=== PATIENT | male | born 1945 | race Caucasian/White ===

== ENCOUNTER 2016-07-11 07:04 | Inpatient (IN) | payer BC ==
--- NOTE | ~2016-07-11 | DS ---
Discharge Summary [facility] [address] [place]. [address] NAME: EL CONNOR : 44 STATUS : DIS IN PAT#: [id number] AGE: 71 ADM/REG DATE : 07/11/16 MR#: [id number] REPORT SERV DATE: 07/22/16 DICTATED BY: MCI VASQUEZ DATE: 07/21/16 REPORT STATUS : Draft TRANSCRIBED BY: MODL DATE: 07/21/16 ADMISSION DATE: 07/11/2016 DISCHARGE DATE: 07/21/2016 DISCHARGE DIAGNOSES: 1. Acute on chronic biventricular systolic congestive heart failure exacerbation with baseline ejection fraction of 22%. 2. Ischemic cardiomyopathy. 3. Acute rhythm changing hyperkalemia requiring emergent hemodialysis on 07/17/2016. 4. Acute kidney injury on chronic kidney disease. 5. Biventricular AICD. 6. Right-sided pleural effusion. CONSULTS: 1. Cardiology. 2. Nephrology. 3. Critical Care. PROCEDURES AND IMPORTANT IMAGIN. Echocardiogram performed on 07/12/2015 showed severely decreased left ventricular systolic function with calculated ejection fraction of 22%. The patient also had a dilated left-sided chambers along with regional wall motion abnormalities. The patient also had a dilated right ventricle with moderately decreased systolic function. The patient also had moderate tricuspid regurg with mild pulmonary hypertension and dilated aorta. 2. Emergent hemodialysis performed on 07/17/2016 after emergent placement of Vas-Cath for the rhythm changing hyperkalemia. HOSPITAL COURSE: This is a 71-year-old gentleman who was initially admitted with acute on chronic biventricular systolic congestive heart failure exacerbation. For details, please refer to excellent H and P dictated by Dr. Prasad Smith. In summary, the patient was admitted and was treated with IV Bumex drip. The patient was diuresing well and was nearing discharge. I assumed care of this patient on 07/16/2016 and by then, the patient was transitioned from IV Bumex drip to p.o. Bumex. The patient was still getting 40 mEq of potassium b.i.d. The patient's creatinine had ranged from 1.2 to 1.7 throughout the hospital stay. As the patient's creatinine was climbing up likely due to over diuresis, the patient's p.o. Bumex was held on the morning of 07/17/2016. It was also noted that the patient's potassium has been around 3.8 to mid 4's, and then on 07/17/2016 morning, the patient's potassium was found to be at 6. Again the patient's Bumex was held on the morning of 07/17/2016, and the patient was given gentle IV fluid hydration to offset the over- diuresis and the hyperkalemia. The patient then had a rapid response on 07/17/2016 around noon when the patient became very lethargic and not very responsive. The patient was then found to have a potassium level of 7.6. The patient was taken down for emergent hemodialysis. Subsequently, the patient did not have further issues of hyperkalemia, as a matter of fact, the patient actually required gentle potassium replacements throughout the rest of hospital stay. It is still not entirely clear why the patient decompensated so Discharge Summary [place] [id number] [facility] [place]. [address] NAME: EL CONNOR : 44 STATUS : DIS IN PAT#: [id number] AGE: 71 ADM/REG DATE : 07/11/16 MR#: [id number] REPORT SERV DATE: 07/22/16 DICTATED BY: MIC VASQUEZ DATE: 07/21/16 REPORT STATUS : Draft TRANSCRIBED BY: VAISHNAVI DATE: 07/21/16 quickly in terms of hyperkalemia. Besides the above acute event, the patient at baseline has poor prognosis with extremely advanced ischemic cardiomyopathy. The patient was recommended to get an LVAD in the past which he refused. Also Cardiology recommended hospice, but the patient refused hospice also. After several days of stable hemodynamics with stable ins and outs and electrolytes and renal function, the patient is now being discharged home to be followed closely as an outpatient. Of note, the patient had a CT of the chest done due to persistent cough, which did not show any pneumonic process but it did show a right-sided moderate size pleural effusion. The patient actually refused thoracentesis, and the patient adamantly wanted to be discharged home at this point in time. The patient clearly understands the risks versus benefits of not getting the thoracentesis. The patient is now being discharged home to continue slow diuresis with p.o. Demadex, and he will have a very close followup with his primary care physician. The patient at baseline uses 3 L of home oxygen, and the patient is being discharged on 2 L of home oxygen. DISPOSITION: Home. DISCHARGE MEDICATIONS: 1. Coreg 3.125 mg p.o. b.i.d. as a new medication. The patient's metoprolol was discontinued. 2. Demadex 40 mg p.o. daily as a new medication. The patient's Bumex prior to admission is discontinued. 3. Klor-Con 20 mEq p.o. daily, which is decreased from 20 mEq p.o. three times daily. The patient is also given a prescription for Medrol Dosepak and Z-Yogi for possible bronchitis. Otherwise, there are no medication changes. FOLLOWUP: Please follow up with PCP in the next one week. The patient is to have lab work prior to following up with his primary care physician. A total of 45 minutes spent in coordinating this patient's discharge today. TERRELL/VAISHNAVI Mic Vasquez MD / [id number] CC: MD Prasad Cagle M.D.
--- NOTE | ~2016-07-11 | CN ---
Consultation Report [facility] [address] [place]. [address] NAME: EL CONNOR : 44 STATUS : ADM IN PAT#: [id number] AGE: 71 ADM/REG DATE : 07/11/16 MR#: [id number] REPORT SERV DATE: 07/17/16 DICTATED BY: HANNAH MOELLER DATE: 07/17/16 REPORT STATUS : Draft TRANSCRIBED BY: MODL DATE: 07/17/16 CONSULTATION DATE OF CONSULTATION: 07/17/2016 REQUESTING PHYSICIAN: Dr. Espinosa. REASON FOR CONSULTATION: Acute hyperkalemia with shock in a patient with acute on chronic kidney disease. ASSESSMENT: Acute on chronic kidney disease, patient with ischemic cardiomyopathy, ejection fraction 25%, now found to be in shock with severe hyperkalemia, potassium 7.6 in the setting of ischemic cardiomyopathy, and worsening kidney function in the form of overdiuresis with underlying cardiorenal syndrome. PLAN: Plan therefore is 1. Emergent hemodialysis, right femoral Vas-Cath placed by Dr. Joaquin. I was present at that time. 2. Emergent hemodialysis, initiated on a Zero K bath for 2 hours. Based on his serum potassium, we will revert him to a 2K bath, provided his potassium drops below 4. No ultrafiltration will be performed. We will give him albumin if needed for dialysis to maintain his pressure and hopefully his heart is able to tolerate the underlying dialysis process to correct the emergent need to bring the potassium down. HISTORY OF PRESENT ILLNESS: History is obtained from records available. The patient is obtunded. He will arouse to simple commands and follow simple commands and is aware that he is currently on dialysis. He is a 71-year-old male, who was admitted 07/11/2016, with a history of increasing dyspnea in spite of increasing doses of oral Bumex. He has been noncompliant with his fluid intake. He is actually a class III-to-IV CHF but with his worsening symptoms and worsening heart failure, he was admitted for further evaluation. He has been placed on a Bumex drip with intermittent supplementation of potassium and his creatinine has been 1.22 in the past, as of 03/29/2016, it was 1.77, admission went down to 1.22, and now 1.93. His initial potassium was 5.1, dropped to 3.8, it was 6.0 today with aggressive potassium supplementation and subsequently up into the 7 range. PAST MEDICAL HISTORY: His past medical history includes coronary artery disease with bypass in 1993, a 4-vessel bypass, ischemic cardiomyopathy, ejection fraction 25%, class III-to-IV CHF with biventricular AICD; history of esophageal stricture; and COPD on home oxygen at 2 L. SOCIAL HISTORY: He lives independently. He is retired. Quit smoking in 2007, smoked for 40 years. No alcohol or medication or street drug usage. FAMILY HISTORY: Negative for end-stage renal failure, at least by history. Consultation Report [place] [id number] [facility] [place]. [address] NAME: EL CONNOR : 44 STATUS : ADM IN [facility]#: [id number] AGE: 71 ADM/REG DATE : 07/11/16 MR#: [id number] REPORT SERV DATE: 07/17/16 DICTATED BY: HANNAH MOELLER DATE: 07/17/16 REPORT STATUS : Draft TRANSCRIBED BY: VAISHNAVI DATE: 07/17/16 ALLERGIES: AMOXICILLIN, PROMETHAZINE, LIBRAX, AND DIAZEPAM. HOME MEDICATIONS: Albuterol; baclofen; hydrocodone; losartan; Zaroxolyn; Lopressor; midodrine; omeprazole; and potassium. REVIEW OF SYSTEMS: As per the HPI. PHYSICAL EXAMINATION: GENERAL: He was seen on dialysis initially. VITAL SIGNS: Blood pressure is running in the 110s over 60s. Heart rate is in the 90s. He is afebrile. HEENT: Pupils are reacting to light and he is not pale or jaundiced. Oral mucosa is dry. No pharyngitis. NECK: Supple. No thyromegaly. No carotid bruits heard and cranial nerves are intact. There are no carotid bruits heard. No supraclavicular or inguinal adenopathy. LUNGS: He has an AICD left upper chest; healed sternotomy scar. Air entry is equal bilaterally. CHEST: Clear to auscultation. HEART: Keaton beats not displaced. S1-S2. No rub. ABDOMEN: Nontender. No hepatosplenomegaly. No tenderness, guarding, or rebound. Bowel sounds are normal. He has a right femoral Vas-Cath. EXTREMITIES: He has reduced peripheral pulses and dorsalis pedis, posterior tibial and muscle wasting as described. Moving all limbs spontaneously. NEUROLOGIC: No gross neurological deficits. LABORATORY DATA: His lab work showed him to have a sodium of 135, potassium 6.0, chloride 95, CO2 of 31, BUN 65, and creatinine 1.93. Hemoglobin is 10.9, hematocrit is 36.9, white count 16.7, and platelet count 236,000. MG/MODL Hannah Moeller M.D. / [id number] CC: Mic Espinosa MD
--- NOTE | ~2016-07-11 | OP ---
Record Of Operation [facility] [address] [place]. [address] NAME: EL CONNOR : 44 STATUS : ADM IN PAT#: [id number] AGE: 71 ADM/REG DATE : 07/11/16 MR#: [id number] REPORT SERV DATE: 07/17/16 DICTATED BY: KILLIAN JOAQUIN DATE: 07/17/16 REPORT STATUS : Draft TRANSCRIBED BY: MODL DATE: 07/17/16 DATE OF PROCEDURE: PROCEDURE PERFORMED: Dialysis access placement. INDICATIONS: For hyperkalemia with rhythm abnormalities. DESCRIPTION OF PROCEDURE: The right femoral area was prepped and draped in a sterile fashion and cleansed with chlorhexidine solution. Using the SonoSite ultrasound, we were able to visualize the vein and artery which were separate and the vein was fairly compressible. We cannulated the vein with the larger bore central line needle, advanced the guidewire without resistance and advanced a dual-lumen dialysis catheter over the guidewire following Seldinger's technique. It was secured in place and dialysis was started. IMPRESSION: Successful uneventful dialysis access placement for hyperkalemia. SHERRIE/VAISHNAVI Killian Joaquin M.D. / [id number] CC: Mic Espinosa MD
--- NOTE | ~2016-07-11 | HP ---
History And Physical [place] [address] [place]. [address] NAME: EL CONNOR : 44 STATUS : ADM IN PAT#: [id number] AGE: 71 ADM/REG DATE : 07/11/16 MR#: [id number] REPORT SERV DATE: 07/11/16 DICTATED BY: JR. SMITH WILLIAM JOHN DATE: 07/11/16 REPORT STATUS : Draft TRANSCRIBED BY: VAISHNAVI DATE: 07/11/16 DATE OF ADMISSION: 07/11/2016 TIMBER BUCKER: Anton Coulter M.D. PLASTIC MOLDING OPERATOR: Yenny Longoria M.D. HISTORY OF PRESENT ILLNESS: 71-year-old white male with a history of oxygen-dependent COPD, chronically on 2 L oxygen by nasal cannula as well as ischemic cardiomyopathy with an ejection fraction of 25% on an 01/2016 echocardiogram with chronic low-flow state, on chronic midodrine with AICD in place. He presents to the emergency room with complaint of shortness of breath. The patient states he developed shortness of breath yesterday. It improved with inhaled medications. He went to bed and awakened at 1:30 a.m. with severe shortness of breath, not improved with nebulizers, and therefore came to the emergency room. He does admit to right- sided substernal chest pressure without radiation, exacerbated by breathing. He did not feel like prior coronary artery disease pain. He does also admit of a chronic cough without significant change, productive of clear phlegm. He has had no fevers or chills or changes in his weight. PAST MEDICAL HISTORY: Includes: 1. Ischemic cardiomyopathy with ejection fraction of 25% on an 01/2016 echocardiogram with an AICD in place, followed by Dr. Coulter. 2. Coronary artery disease with a history of remote bypass. 3. Hypertension. 4. Hyperlipidemia. 5. History of ventricular tachycardia. 6. Oxygen-dependent COPD, on 2 L oxygen by nasal cannula. 7. History of esophageal stricture, status post dilation. 8. Chronic hypotension. 9. History of left knee open reduction and internal fixation. 10.History of colonic polypectomy. HOME MEDICATIONS: 1. Albuterol nebulized every four hours as needed. 2. Amiodarone 100 mg orally at bedtime. 3. Aspirin 325 daily. 4. Lipitor 20 mg daily. 5. Baclofen 10 mg daily. 6. Bumex 1 mg twice a day. 7. Neurontin 100 mg three times a day. 8. Marquette 10/325 one tablet every 8 hours as needed. 9. Cozaar 12.5 mg daily. 10.Metolazone 2.5 mg daily for weight gain greater than 2 pounds. 11.Metoprolol tartrate 12.5 mg daily. History And Physical [address] [address] NAME: EL CONNOR : 44 STATUS : ADM IN PAT#: [id number] AGE: 71 ADM/REG DATE : 07/11/16 MR#: [id number] REPORT SERV DATE: 07/11/16 DICTATED BY: JR. SMITH WILLIAM JOHN DATE: 07/11/16 REPORT STATUS : Draft TRANSCRIBED BY: VAISHNAVI DATE: 07/11/16 12.Midodrine 2.5 mg three times a day. 13.Nitroglycerin 0.4 mg sublingually as needed. 14.Omeprazole 20 mg orally twice a day. 15.Potassium chloride 20 mEq orally three times a day. 16.Dulera two puffs twice a day. 17.Vicks NyQuil as needed. ALLERGIES: INCLUDE AMOXICILLIN WHICH CAUSES DIZZINESS, PHENERGAN WHICH CAUSES SLEEPWALKING, LIBRAX WHICH CAUSES TACHYCARDIA, AND VALIUM WHICH CAUSES NAUSEA AND VOMITING. FAMILY HISTORY: Mother at age 83 of a stroke. Father at age 68 of myocardial infarction, also had tuberculosis. One brother at age 56 of myocardial infarction. One sister is living and healthy. SOCIAL HISTORY: Lives in [place] alone. He is . Denies alcohol. Does have a smoking history of about [id number]-[id number], quitting in 2004. No illicit drugs. 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 REVIEW OF SYSTEMS: Negative in all 12 systems reviewed except he does admit to decreased appetite, chest pain with breathing, occasional palpitations, chronic cough, nausea without vomiting, and diffuse myalgias. CODE STATUS: Discussed with the patient and he desires full resuscitative measures. PHYSICAL EXAMINATION: VITAL SIGNS: Temperature 97.9, blood pressure of 119/41, heart rate 98, respiratory rate 18, saturation 94% on 4 L. GENERAL: Patient is alert, oriented, had some use of accessary muscles and appears slightly uncomfortable. HEENT: Pupils are equal, round, and reactive to light. Extraocular motions are intact. Sclerae are anicteric. Oropharynx is clear. NECK: Supple without jugular venous distention, thyromegaly, or bruits. LUNGS: Clear to auscultation. Very distant heart sounds. Some use of accessary muscles. CARDIOVASCULAR: S1 and S2 without murmur. Heart sounds were distant. Gfpwo-ow-lfsjckj impulse was not discernable. ABDOMEN: Soft, nontender, bowel sounds present. EXTREMITIES: Show no clubbing or cyanosis. There is 1+ bilateral and symmetrical pitting edema. NEUROLOGIC: Cranial nerves 2 through 12 are intact. Strength and sensation were full and equal throughout. DERMATOLOGIC: There was no rash or other lesions noted. PSYCHIATRIC: Mood and affect were appropriate. LYMPH NODE SURVEY: Negative in the cervical and supraclavicular regions. LABORATORY DATA: White count of 11.9, hemoglobin 10, and platelets 221. PT of 17.1 with an INR of 1.4, PTT of 28.6. Sodium 140, potassium 5.1, chloride 105, bicarb 20, BUN 49, History And Physical [address] [address] NAME: EL CONNOR : 44 STATUS : ADM IN [facility]#: [id number] AGE: 71 ADM/REG DATE : 07/11/16 MR#: [id number] REPORT SERV DATE: 07/11/16 DICTATED BY: JR. SMITH WILLIAM JOHN DATE: 07/11/16 REPORT STATUS : Draft TRANSCRIBED BY: [facility] DATE: 07/11/16 creatinine 1.8, glucose 112. Magnesium 2.2, calcium 9.1. Troponin I of 0.1. B-type natriuretic peptide was 1962. Arterial blood gas showed a pH of 7.4, pCO2 of 32, pO2 of 71 on 4 L. Chest x-ray showed cardiomegaly with vascular crowding, AICD in place, and stigmata of a median sternotomy. This film was personally reviewed. EKG: Again personally reviewed, showed a paced rhythm with a rate of 99. ASSESSMENT AND PLAN: 71-year-old white male with: 1. Acute on chronic systolic heart failure with a known ejection fraction of 25% and a low- flow state with chronic hypotension, on midodrine with an AICD in place. The patient is chronically on Bumex 1 mg orally twice a day. We will give him Bumex 1 mg IV every eight hours for three doses. Also, given his very complicated cardiac history, we will ask Dr. Coulter to assist. We will also check a followup chest x-ray in the morning. 2. Elevated troponin, likely secondary to demand and chronic kidney disease. We will get serial troponins to follow the curve. 3. Acute on chronic kidney disease. His baseline creatinine is 1.5. He is now 1.8. We will monitor renal functions as we diurese him. 4. Hypertension by history, now with relatively low blood pressure. 5. Hyperlipidemia. Continue statin. 6. History of ventricular tachycardia. Continue amiodarone. 7. Oxygen-dependent chronic obstructive pulmonary disease. We will continue oxygen protocol and his home inhaled medications. There was no evidence of chronic obstructive pulmonary disease exacerbation. 8. Diffuse myalgias. We will check a creatine kinase to assess for statin side effect. 9. The patient is full code. 10.Inpatient status. 11.I will follow this patient. WJF/MODL Prasad Smith Jr, MD / [id number] CC: Brenda Watts M.D.
--- NOTE | ~2016-07-11 | CN ---
Consultation Report [facility] [address] [place]. [address] NAME: EL CONNOR : 44 STATUS : ADM IN PAT#: [id number] AGE: 71 ADM/REG DATE : 07/11/16 MR#: [id number] REPORT SERV DATE: 07/11/16 DICTATED BY: GILMA NIETO DATE: 07/11/16 REPORT STATUS : Draft TRANSCRIBED BY: MODL DATE: 07/11/16 CARDIOLOGY CONSULTATION DATE OF CONSULTATION: REFERRING REASON: Heart failure exacerbation. HISTORY OF PRESENT ILLNESS: This is a pleasant 71-year-old white gentleman, well known to Dr. Anton Coulter, who has been closely followed by him. He has ischemic cardiomyopathy with EF 25% with chronic congestive heart failure, class III symptoms with chronic hypotension treated with midodrine. He has been recently seen by Dr. Coulter in May. He was noted to have some worsening dyspnea and the dose of p.o. Bumex has been increased. He denied any chest pain at that time. The patient admitted to be noncompliant to fluid restriction. He has been drinking large amount of fluids. He noticed, over the last several weeks, worsening dyspnea on exertion with minimal activity, weight gain, lower extremity edema, and increased abdominal girth. No AICD discharge. No chest pain until this morning when he had a few seconds lasting sharp chest pain, which resolved by itself. No AICD discharge again. He denied any recent fever or chills. The rest of review of systems is negative. PAST MEDICAL HISTORY: Coronary artery disease with remote history of CABG in 1993, four vessels, with negative nuclear cardiac stress test in 2010; ischemic cardiomyopathy with EF 25% with global hypokinesis in 01/2016; congestive heart failure, class III symptoms; chronic hypotension with history of midodrine use; remote history of ventricular tachycardia; BiV AICD in place without any recent discharges, interrogated in 05/2016; history of hypertension with hyperlipidemia; history of esophageal stricture; chronic COPD on 2 L of home oxygen. SOCIAL HISTORY: The patient lives independently. He walks without any support. He is retired. He quit smoking in 2007, smoked for 40 years. Denies drinking alcohol or using street drugs. FAMILY HISTORY: Negative for sudden cardiac , premature coronary artery disease in the family. ALLERGIES: AMOXICILLIN, PROMETHAZINE, LIBRAX, AND DIAZEPAM. HOME MEDICATIONS: Albuterol inhaler q.4 hours as needed; amiodarone 100 mg once a day; aspirin 325 mg once a day; Lipitor 20 mg once a day; baclofen 10 mg once a day; Bumex 1 mg twice a day; Neurontin 100 mg three times a day; hydrocodone 10/325 mg as needed every eight hours for pain; losartan 25 mg once a day; Zaroxolyn 2.5 mg as needed; Lopressor 12.5 mg; the patient has been taking it once a day; midodrine 2.5 mg three times a day; omeprazole 20 mg once a day; potassium supplement 20 mEq once a day. Consultation Report [place] [id number] [facility] [place]. [address] NAME: EL CONNOR : 43 STATUS : ADM IN [facility]#: [id number] AGE: 71 ADM/REG DATE : 07/11/16 MR#: [id number] REPORT SERV DATE: 07/11/16 DICTATED BY: GILMA NIETO DATE: 07/11/16 REPORT STATUS : Draft TRANSCRIBED BY: VAISHNAVI DATE: 07/11/16 PHYSICAL EXAMINATION: GEN - No acute distress. Elderly gentleman, able to lie flat with 2 L of oxygen by nasal cannula. VITAL SIGNS: Blood pressure 113/56, heart rate 77 and regular. HEENT - Pupils reactive to light and accommodation. Moist mucosa membrane. NECK: No JVD. Normal carotid upstroke. No carotid bruits. LUNGS: Decreased breath sounds bibasilar with occasionally crackles at the bases. COR: Normal S1, S2. No S3 or S4. No significant rub or murmurs. AICD in place in the left prepectoral muscle area. ABD: Obese, distended with possible small ascites. EXT: Lower extremity with trace edema around the ankles with decreased pedal pulses bilaterally. SKIN: Warm with normal turgor. MS - No kyphosis. NEURO/PSY - Alert and oriented. Nonfocal. DATA: BNP elevated up to 1961. Creatinine 1.7, BUN 49. Troponin 0.1, decreasing to 0.08. Chest x-ray show cardiomegaly with remote history of CABG and venous congestion consistent with CHF. INR 1.4. Leukocytosis 11,000, hemoglobin 10. Electrocardiogram; atrioventricular paced rhythm, 90 beats per minute. ASSESSMENT/PLAN: 1. Fluid overload with acute on chronic heart failure exacerbation. 2. Ischemic cardiomyopathy. 3. Mild troponin leak with atypical chest pain. 4. Coronary artery disease with remote history of CABG. 5. BiV AICD in place. 6. Renal insufficiency. 7. Chronic hypotension on midodrine. The patient clearly has fluid overload and admitted to drink large amount of water at home. I agree on intravenous diuretics. He will need to be on strict I and O and fluid restriction. While he has evidence of renal insufficiency, we will hold the ARB. He denied any syncope or significant positional lightheadedness. We will continue low dose of midodrine for now. He will continue on chronic oxygen for his COPD. At the present time, I do not believe that his transient few seconds lasting sharp chest pain represent an acute coronary syndrome. We will continue medical therapy. We will plan for echocardiogram. PARK/VAISHNAVI Gilma Nieto M.D. Consultation Report [address] [place]. [address] NAME: EL CONNOR : 43 STATUS : ADM IN PAT#: [id number] AGE: 71 ADM/REG DATE : 07/11/16 MR#: [id number] REPORT SERV DATE: 07/11/16 DICTATED BY: GILMA NIETO DATE: 07/11/16 REPORT STATUS : Draft TRANSCRIBED BY: VAISHNAVI DATE: 07/11/16 / [id number] CC: Brenda Watts M.D.
[2016-07-11 06:16] LABS: ALLENS TEST Pos; BE (BASE EXCESS) -4.5 MEQ/L (0 +/- 2.5); CARBOXYHEMOGLOBIN 2.3 % (0-3); DEVICE NC; HCO3 (ACTUAL BICARBONATE) 19.5 MEQ/L (23-27); HEMOBLOGIN CONTENT 10.8 G/DL (14-18); INSTRUMENT SERIAL # 8087; O2 CONTENT 13.8 VOL% (18-24); OPERATOR ID 17589; PCO2 (CO2 TENSION) 32 MMHG (35-45); PO2 (O2 TENSION) 71 MMHG (79-93); SAMPLE Arterial
[2016-07-11 06:43] LABS: BASOPHILS 0.3 %; BASOPHILS ABSOLUTE 0.03 10/3/uL (0.0-0.16); EOSINOPHILS 1.3 %; EOSINOPHILS ABSOLUTE 0.15 10/3/uL (0.0-0.53); ER CBC TAT 0 Hrs 00 Mins; IMMATURE GRANULOCYTES 0.3 %; IMMATURE GRANULOCYTES ABSOLUTE 0.04 10/3/uL (0.0-0.11); LYMPHOCYTES 18.7 %; LYMPHOCYTES ABSOLUTE 2.22 10/3/uL (0.67-4.30); MEAN CORPUS HGB CONC 30.4 g/dL (32.0-36.0); MEAN PLATELET VOLUME 10.7 fL (9.2-13.0); MONOCYTES 10.3 %; MONOCYTES ABSOLUTE 1.22 10/3/uL (0.21-1.20); NEUTROPHILS 69.1 %; NEUTROPHILS ABSOLUTE 8.24 10/3/uL (2.02-8.40); PLATELET COUNT 221 10/3/uL (150-400); RBC DISTRIBUTION WIDTH 18.2 % (12.0-16.0); RED CELL COUNT 4.04 10/6/uL (4.7-6.1); WHITE BLOOD CELLS 11.9 10/3/uL (4.5-10.5)
[2016-07-11 06:44] LABS: HEMATOCRIT 32.9 % (40.0-51.0); MANUAL DIFF NO %; MEAN CORPUSCULAR HEMOGLOB 24.8 pg (26.0-34.0); MEAN CORPUSCULAR VOLUME 81.4 fL (80-100)
[2016-07-11 06:55] LABS: INTERNATIONAL NORMAL RATI 1.4 UNITS (-); PARTIAL THROMBO TIME 28.6 SEC (22.5-37.2); PROTIME (NOT ORD) 17.1 SEC (12.0-14.5)
[2016-07-11 07:00] LABS: CALCIUM, SERUM 9.1 MG/DL (8.5-10.4); CHLORIDE, SERUM 105 MMOL/L (96-112); CO2 (CARBON DIOXIDE) 20 MMOL/L (24-34); POTASSIUM, SERUM 5.1 MMOL/L (3.5-5.3); SODIUM, SERUM 140 MMOL/L (135-148)
[2016-07-11 07:01] LABS: BUN (BLOOD UREA NITROGEN) 49 MG/DL (6-23); CHEST PAIN PROFILE TAT 0 Hrs 23 Mins; CREATININE 1.77 MG/DL (0.70-1.30); GFR AFRICAN AMERICAN 44 ML/MIN (>=60); GFR NON AFRICAN AMERICAN 38 ML/MIN (>=60); GLUCOSE, SERUM 112 MG/DL (60-99)
[~2016-07-11 07:04] MED LIST: ALBUTEROL5 INH; ASAB PO; ASABAYER PO; BACLOFEN20 MG PO; CAP12.5 PO; CAP25 PO; COZ25 PO; DEXALANT PO; DEXILANT OR; FISH-EPA1000 MG PO; KLOR-CON M2020 MEQ PO; L20 PO; L40 PO; LEVSINTAB PO; LIOR10 PO; LIPITOR20 PO; LOP25 PO; LOP50 PO; MAALOX PO; NEUR100 PO; NEXIUM40 PO; NITROSTAT0.4 MG SL; NORCO1 TAB PO; NTG150 SL; P20 PO; PACERONE100 MG PO; PR25 PO; PRILO PO; SPIRIVA INH; SPIRO25 PO; SYMBICORT 160/41 INH INH; TOPAMAX50 MG PO; TOPXL25 PO; TOPXL50 PO; TUMSROLL PO; VENTOLIN HFA INH; VENTOLIN HFA PO; ZANTAC150 MG PO; ZOCOR40 PO; ZOFRAN4 PO; ZYRTEC ALLGY10 MG PO; [UNRECOGNIZED DRUG - OTHER]
[2016-07-11 07:31] LABS: BAND NEUTROPHILS 2 %; ER DIFF TAT 0 Hrs 47 Mins; LYMPHOCYTES 3 %; LYMPHOCYTES ABSOLUTE (CALC) 0.36 10/3/uL (0.67-4.30); MONOCYTES 16 %; NEUTROPHILS ABSOLUTE (CALC) 9.64 10/3/uL (2.02-8.40); SEGMENTED NEUTROPHIL (0) 79 %; TOTAL NUCLEATED CELLS 100
[2016-07-11 07:32] LABS: ANISOCYTOSIS 1+ (5-10/OIF) (0-5/OIF); MICROCYTES 1+ (5-10/OIF) (0-5/OIF); PLATELET ESTIMATE ADQ (ADEQUATE)
[2016-07-11 07:33] LABS: HYPOCHROMIA 1+ (3-10/OIF) (0-2/OIF)
[2016-07-11] MEDS ORDERED: ALBUTEROL5 INH (08:24)
[2016-07-11] MEDS ORDERED: PACERONE100 MG PO (08:24)
[2016-07-11] MEDS ORDERED: LIOR10 PO (08:25)
[2016-07-11] MEDS ORDERED: LIPITOR20 PO (08:25)
[2016-07-11] MEDS ORDERED: BUM1 PO (08:26)
[2016-07-11] MEDS ORDERED: DULERA 200 MCG/13 GM INH (08:26)
[2016-07-11] MEDS ORDERED: ASA5GR PO (08:27)
[2016-07-11] MEDS ORDERED: KLOR-CON M2020 MEQ PO (08:28)
[2016-07-11] MEDS ORDERED: NEUR100 PO (08:28)
[2016-07-11] MEDS ORDERED: ZAROX2.5B PO (08:29)
[2016-07-11] MEDS ORDERED: COZ25 PO (08:29)
[2016-07-11] MEDS ORDERED: NITROSTAT0.4 MG SL (08:30)
[2016-07-11] MEDS ORDERED: TOPXL25 PO (08:30)
[2016-07-11] MEDS ORDERED: PROAM25 PO (08:30)
[2016-07-11] MEDS ORDERED: PRILO PO (08:31)
[2016-07-11] MEDS ORDERED: VICKS NYQUIL PO (08:32)
[2016-07-11] MEDS ORDERED: NORCO1 TAB PO (08:38)
[2016-07-11 11:29] LABS: TROPONIN I 0.08 NG/ML (<0.05)
[2016-07-12 07:03] LABS: HEMOGLOBIN 9.3 g/dL (13.6-17.8); MANUAL DIFF YES %; MEAN CORPUSCULAR HEMOGLOB 24.3 pg (26.0-34.0); MEAN CORPUSCULAR VOLUME 81.2 fL (80-100); MEAN PLATELET VOLUME 10.7 fL (9.2-13.0); PLATELET COUNT 166 10/3/uL (150-400); RBC DISTRIBUTION WIDTH 18.2 % (12.0-16.0); RED CELL COUNT 3.82 10/6/uL (4.7-6.1); WHITE BLOOD CELLS 11.2 10/3/uL (4.5-10.5)
[2016-07-12 07:19] LABS: A/G RATIO 0.8 (0.7-1.9); ALBUMIN 3.3 G/DL (3.5-5.0); ALKALINE PHOSPHATASE 92 U/L (45-117); BUN (BLOOD UREA NITROGEN) 50 MG/DL (6-23); CALCIUM, SERUM 8.5 MG/DL (8.5-10.4); CHLORIDE, SERUM 102 MMOL/L (96-112); CK-MB 4.8 NG/ML; CO2 (CARBON DIOXIDE) 31 MMOL/L (24-34); CPK 128 U/L (0-200); CREATININE 1.58 MG/DL (0.70-1.30); FERRITIN 83 NG/ML (26-388); GFR AFRICAN AMERICAN 50 ML/MIN (>=60); GFR NON AFRICAN AMERICAN 43 ML/MIN (>=60); GLOBULIN 4.3 G/DL (2.5-4.1); GLUCOSE, SERUM 78 MG/DL (60-99); POTASSIUM, SERUM 3.6 MMOL/L (3.5-5.3); SGOT(AST) 74 U/L (5-40); SGPT(ALT) 96 U/L (5-65); SODIUM, SERUM 142 MMOL/L (135-148); TOTAL BILIRUBIN 1.1 MG/DL (0-1.2); TOTAL PROTEIN 7.6 G/DL (6.0-8.5)
[2016-07-12 07:40] LABS: ANISOCYTOSIS 1+ (5-10/OIF) (0-5/OIF); EOSINOPHILS 5 %; EOSINOPHILS ABSOLUTE (CALC) 0.56 10/3/uL (0.0-0.53); HYPOCHROMIA 1+ (3-10/OIF) (0-2/OIF); LYMPHOCYTES 5 %; LYMPHOCYTES ABSOLUTE (CALC) 0.56 10/3/uL (0.67-4.30); MONOCYTES 16 %; MONOCYTES ABSOLUTE (CALC) 1.79 10/3/uL (0.21-1.20); NEUTROPHILS ABSOLUTE (CALC) 8.29 10/3/uL (2.02-8.40); PLATELET ESTIMATE ADQ (ADEQUATE); SEGMENTED NEUTROPHIL (0) 74 %; TOTAL NUCLEATED CELLS 100
[2016-07-13 03:32] LABS: HEMOGLOBIN 9.2 g/dL (13.6-17.8); MANUAL DIFF YES %; MEAN CORPUS HGB CONC 29.7 g/dL (32.0-36.0); MEAN CORPUSCULAR HEMOGLOB 24.3 pg (26.0-34.0); MEAN CORPUSCULAR VOLUME 81.8 fL (80-100); MEAN PLATELET VOLUME 10.3 fL (9.2-13.0); PLATELET COUNT 168 10/3/uL (150-400); RBC DISTRIBUTION WIDTH 17.9 % (12.0-16.0); RED CELL COUNT 3.79 10/6/uL (4.7-6.1); WHITE BLOOD CELLS 9.7 10/3/uL (4.5-10.5)
[2016-07-13 03:45] LABS: BUN (BLOOD UREA NITROGEN) 47 MG/DL (6-23); CALCIUM, SERUM 8.3 MG/DL (8.5-10.4); CHLORIDE, SERUM 101 MMOL/L (96-112); CO2 (CARBON DIOXIDE) 35 MMOL/L (24-34); CREATININE 1.46 MG/DL (0.70-1.30); GFR AFRICAN AMERICAN 55 ML/MIN (>=60); GFR NON AFRICAN AMERICAN 47 ML/MIN (>=60); POTASSIUM, SERUM 3.3 MMOL/L (3.5-5.3); SODIUM, SERUM 145 MMOL/L (135-148)
[2016-07-13 03:46] LABS: GLUCOSE, SERUM 109 MG/DL (60-99)
[2016-07-13 03:59] LABS: ANISOCYTOSIS 1+ (5-10/OIF) (0-5/OIF); BAND NEUTROPHILS 1 %; EOSINOPHILS 10 %; EOSINOPHILS ABSOLUTE (CALC) 0.97 10/3/uL (0.0-0.53); LYMPHOCYTES 10 %; LYMPHOCYTES ABSOLUTE (CALC) 0.97 10/3/uL (0.67-4.30); MONOCYTES 8 %; MONOCYTES ABSOLUTE (CALC) 0.78 10/3/uL (0.21-1.20); NEUTROPHILS ABSOLUTE (CALC) 6.98 10/3/uL (2.02-8.40); PLATELET ESTIMATE ADQ (ADEQUATE); RBC MORPHOLOGY ABN (NORMAL); SEGMENTED NEUTROPHIL (0) 71 %; TOTAL NUCLEATED CELLS 100
[2016-07-14 06:56] LABS: HEMATOCRIT 31.7 % (40.0-51.0); HEMOGLOBIN 9.4 g/dL (13.6-17.8); MEAN CORPUS HGB CONC 29.7 g/dL (32.0-36.0); MEAN CORPUSCULAR HEMOGLOB 24.3 pg (26.0-34.0); MEAN CORPUSCULAR VOLUME 81.9 fL (80-100); MEAN PLATELET VOLUME 10.1 fL (9.2-13.0); PLATELET COUNT 180 10/3/uL (150-400); RED CELL COUNT 3.87 10/6/uL (4.7-6.1); WHITE BLOOD CELLS 13.5 10/3/uL (4.5-10.5)
[2016-07-14 06:58] LABS: MANUAL DIFF YES %
[2016-07-14 07:00] LABS: ALBUMIN 3.3 G/DL (3.5-5.0); CHLORIDE, SERUM 99 MMOL/L (96-112); CO2 (CARBON DIOXIDE) 35 MMOL/L (24-34); CREATININE 1.22 MG/DL (0.70-1.30); GFR AFRICAN AMERICAN 68 ML/MIN (>=60); GFR NON AFRICAN AMERICAN 59 ML/MIN (>=60); GLUCOSE, SERUM 88 MG/DL (60-99); PHOSPHORUS, SERUM 3.3 MG/DL (2.5-4.5); SODIUM, SERUM 142 MMOL/L (135-148)
[2016-07-14 07:01] LABS: BUN (BLOOD UREA NITROGEN) 40 MG/DL (6-23); CALCIUM, SERUM 9.3 MG/DL (8.5-10.4)
[2016-07-14 08:22] LABS: ANISOCYTOSIS 1+ (5-10/OIF) (0-5/OIF); BAND NEUTROPHILS 6 %; EOSINOPHILS 11 %; EOSINOPHILS ABSOLUTE (CALC) 1.49 10/3/uL (0.0-0.53); HYPOCHROMIA 1+ (3-10/OIF) (0-2/OIF); IMMATURE GRANS ABSOLUTE (CALC) 0.14 10/3/uL (0.0-0.11); LYMPHOCYTES 19 %; LYMPHOCYTES ABSOLUTE (CALC) 2.57 10/3/uL (0.67-4.30); METAMYELOCYTES 1 %; MONOCYTES 7 %; MONOCYTES ABSOLUTE (CALC) 0.95 10/3/uL (0.21-1.20); NEUTROPHILS ABSOLUTE (CALC) 8.37 10/3/uL (2.02-8.40); PLATELET ESTIMATE ADQ (ADEQUATE); POLYCHROMASIA 1+ (2-5/OIF) (0-1/OIF); SEGMENTED NEUTROPHIL (0) 56 %; TOTAL NUCLEATED CELLS 100
[2016-07-14 08:25] LABS: TARGET CELLS OCC (1-2/OIF) (0-1/OIF); TEARDROP SHAPED RBCS OCC (0-2/OIF)
[2016-07-14 08:26] LABS: GIANT PLATELET OCC; MACROCYTES 1+ (5-10/OIF) (0-5/OIF)
[2016-07-14 08:27] LABS: HELMET CELLS OCC (0-2/OIF)
[2016-07-14 09:23] LABS: C-REACTIVE PROTEIN 10.8 MG/L (<8.0)
[2016-07-14 10:28] LABS: PROCALCITONIN <0.05 ng/mL (<0.5)
[2016-07-15 06:17] LABS: BASOPHILS 0.3 %; BASOPHILS ABSOLUTE 0.03 10/3/uL (0.0-0.16); EOSINOPHILS 5.1 %; EOSINOPHILS ABSOLUTE 0.59 10/3/uL (0.0-0.53); HEMATOCRIT 31.9 % (40.0-51.0); HEMOGLOBIN 9.4 g/dL (13.6-17.8); IMMATURE GRANULOCYTES 0.3 %; IMMATURE GRANULOCYTES ABSOLUTE 0.03 10/3/uL (0.0-0.11); LYMPHOCYTES 8.9 %; LYMPHOCYTES ABSOLUTE 1.02 10/3/uL (0.67-4.30); MEAN CORPUS HGB CONC 29.5 g/dL (32.0-36.0); MEAN CORPUSCULAR HEMOGLOB 24.2 pg (26.0-34.0); MEAN PLATELET VOLUME 9.7 fL (9.2-13.0); MONOCYTES 19.3 %; MONOCYTES ABSOLUTE 2.22 10/3/uL (0.21-1.20); NEUTROPHILS 66.1 %; NEUTROPHILS ABSOLUTE 7.61 10/3/uL (2.02-8.40); PLATELET COUNT 159 10/3/uL (150-400); RBC DISTRIBUTION WIDTH 17.8 % (12.0-16.0); RED CELL COUNT 3.89 10/6/uL (4.7-6.1); WHITE BLOOD CELLS 11.5 10/3/uL (4.5-10.5)
[2016-07-15 06:19] LABS: MANUAL DIFF NO %
[2016-07-15 06:28] LABS: CALCIUM, SERUM 9.4 MG/DL (8.5-10.4); CHLORIDE, SERUM 95 MMOL/L (96-112); CO2 (CARBON DIOXIDE) 37 MMOL/L (24-34); CREATININE 1.46 MG/DL (0.70-1.30); GFR AFRICAN AMERICAN 55 ML/MIN (>=60); GFR NON AFRICAN AMERICAN 47 ML/MIN (>=60); POTASSIUM, SERUM 3.8 MMOL/L (3.5-5.3); SODIUM, SERUM 139 MMOL/L (135-148)
[2016-07-15 06:33] LABS: BUN (BLOOD UREA NITROGEN) 50 MG/DL (6-23); GLUCOSE, SERUM 110 MG/DL (60-99)
[2016-07-15 09:36] LABS: ALBUMIN 3.4 G/DL (3.5-5.0); ALKALINE PHOSPHATASE 87 U/L (45-117); DIRECT BILIRUBIN 0.2 MG/DL (0.0-0.4); INDIRECT BILIRUBIN(NOT ORDER) 0.9 MG/DL (0.1-0.9); SGOT(AST) 48 U/L (5-40); SGPT(ALT) 103 U/L (5-65); TOTAL BILIRUBIN 1.1 MG/DL (0-1.2); TOTAL PROTEIN 7.5 G/DL (6.0-8.5)
[2016-07-16 08:14] LABS: HEMATOCRIT 30.9 % (40.0-51.0); HEMOGLOBIN 9.1 g/dL (13.6-17.8); MANUAL DIFF YES %; MEAN CORPUS HGB CONC 29.4 g/dL (32.0-36.0); MEAN CORPUSCULAR HEMOGLOB 24.1 pg (26.0-34.0); MEAN CORPUSCULAR VOLUME 81.7 fL (80-100); MEAN PLATELET VOLUME 10.9 fL (9.2-13.0); PLATELET COUNT 171 10/3/uL (150-400); RBC DISTRIBUTION WIDTH 17.9 % (12.0-16.0); RED CELL COUNT 3.78 10/6/uL (4.7-6.1); WHITE BLOOD CELLS 11.8 10/3/uL (4.5-10.5)
[2016-07-16 08:24] LABS: CALCIUM, SERUM 9.5 MG/DL (8.5-10.4); CHLORIDE, SERUM 97 MMOL/L (96-112); CREATININE 1.42 MG/DL (0.70-1.30); GFR AFRICAN AMERICAN 57 ML/MIN (>=60); GFR NON AFRICAN AMERICAN 49 ML/MIN (>=60); GLUCOSE, SERUM 101 MG/DL (60-99); POTASSIUM, SERUM 4.5 MMOL/L (3.5-5.3); SODIUM, SERUM 135 MMOL/L (135-148)
[2016-07-16 08:26] LABS: BUN (BLOOD UREA NITROGEN) 66 MG/DL (6-23); CO2 (CARBON DIOXIDE) 27 MMOL/L (24-34)
[2016-07-16 08:33] LABS: ANISOCYTOSIS 1+ (5-10/OIF) (0-5/OIF); BAND NEUTROPHILS 6 %; EOSINOPHILS 6 %; EOSINOPHILS ABSOLUTE (CALC) 0.71 10/3/uL (0.0-0.53); LYMPHOCYTES 18 %; LYMPHOCYTES ABSOLUTE (CALC) 2.12 10/3/uL (0.67-4.30); MONOCYTES 7 %; MONOCYTES ABSOLUTE (CALC) 0.83 10/3/uL (0.21-1.20); NEUTROPHILS ABSOLUTE (CALC) 8.14 10/3/uL (2.02-8.40); PLATELET ESTIMATE ADQ (ADEQUATE); SEGMENTED NEUTROPHIL (0) 63 %; TOTAL NUCLEATED CELLS 100
[2016-07-16 08:34] LABS: MACROCYTES 1+ (5-10/OIF) (0-5/OIF); POLYCHROMASIA 1+ (2-5/OIF) (0-1/OIF)
[2016-07-16 16:39] LABS: CALCIUM, SERUM 9.5 MG/DL (8.5-10.4); CHLORIDE, SERUM 95 MMOL/L (96-112); GLUCOSE, SERUM 120 MG/DL (60-99); POTASSIUM, SERUM 4.7 MMOL/L (3.5-5.3); SODIUM, SERUM 136 MMOL/L (135-148)
[2016-07-16 16:40] LABS: BUN (BLOOD UREA NITROGEN) 62 MG/DL (6-23); CO2 (CARBON DIOXIDE) 35 MMOL/L (24-34)
[2016-07-16 17:00] LABS: CREATININE 1.56 MG/DL (0.70-1.30); GFR AFRICAN AMERICAN 51 ML/MIN (>=60); GFR NON AFRICAN AMERICAN 44 ML/MIN (>=60)
[2016-07-16 17:05] LABS: CK-MB 2.5 NG/ML; CPK 55 U/L (0-200); TROPONIN I 0.09 NG/ML (<0.05)
[2016-07-17 06:25] LABS: HEMATOCRIT 34.7 % (40.0-51.0); HEMOGLOBIN 10.2 g/dL (13.6-17.8); MANUAL DIFF YES %; MEAN CORPUS HGB CONC 29.4 g/dL (32.0-36.0); MEAN CORPUSCULAR HEMOGLOB 24.2 pg (26.0-34.0); MEAN CORPUSCULAR VOLUME 82.2 fL (80-100); MEAN PLATELET VOLUME 10.3 fL (9.2-13.0); PLATELET COUNT 222 10/3/uL (150-400); RED CELL COUNT 4.22 10/6/uL (4.7-6.1); WHITE BLOOD CELLS 11.8 10/3/uL (4.5-10.5)
[2016-07-17 06:35] LABS: BUN (BLOOD UREA NITROGEN) 65 MG/DL (6-23); CALCIUM, SERUM 9.7 MG/DL (8.5-10.4); CHLORIDE, SERUM 95 MMOL/L (96-112); CO2 (CARBON DIOXIDE) 31 MMOL/L (24-34); CREATININE 1.93 MG/DL (0.70-1.30); GFR AFRICAN AMERICAN 39 ML/MIN (>=60); GFR NON AFRICAN AMERICAN 34 ML/MIN (>=60); GLUCOSE, SERUM 118 MG/DL (60-99); SODIUM, SERUM 135 MMOL/L (135-148)
[2016-07-17 07:03] LABS: BAND NEUTROPHILS 4 %; EOSINOPHILS 4 %; EOSINOPHILS ABSOLUTE (CALC) 0.47 10/3/uL (0.0-0.53); IMMATURE GRANS ABSOLUTE (CALC) 0.35 10/3/uL (0.0-0.11); LYMPHOCYTES 8 %; LYMPHOCYTES ABSOLUTE (CALC) 0.94 10/3/uL (0.67-4.30); METAMYELOCYTES 3 %; MONOCYTES 10 %; MONOCYTES ABSOLUTE (CALC) 1.18 10/3/uL (0.21-1.20); NEUTROPHILS ABSOLUTE (CALC) 8.85 10/3/uL (2.02-8.40); PLATELET ESTIMATE ADQ (ADEQUATE); SEGMENTED NEUTROPHIL (0) 71 %; TOTAL NUCLEATED CELLS 100
[2016-07-17 07:04] LABS: ANISOCYTOSIS 1+ (5-10/OIF) (0-5/OIF)
[2016-07-17 10:07] LABS: PROCALCITONIN <0.05 ng/mL (<0.5)
[2016-07-17 11:51] LABS: HEMATOCRIT 36.9 % (40.0-51.0); HEMOGLOBIN 10.9 g/dL (13.6-17.8); MEAN CORPUS HGB CONC 29.5 g/dL (32.0-36.0); MEAN CORPUSCULAR HEMOGLOB 24.4 pg (26.0-34.0); MEAN CORPUSCULAR VOLUME 82.7 fL (80-100); MEAN PLATELET VOLUME 10.6 fL (9.2-13.0); PLATELET COUNT 236 10/3/uL (150-400); RBC DISTRIBUTION WIDTH 18.3 % (12.0-16.0); RED CELL COUNT 4.46 10/6/uL (4.7-6.1); WHITE BLOOD CELLS 16.7 10/3/uL (4.5-10.5)
[2016-07-17 11:52] LABS: MANUAL DIFF YES %
[2016-07-17 12:25] LABS: ANISOCYTOSIS 1+ (5-10/OIF) (0-5/OIF); BAND NEUTROPHILS 5 %; LYMPHOCYTES 14 %; LYMPHOCYTES ABSOLUTE (CALC) 2.34 10/3/uL (0.67-4.30); MONOCYTES 1 %; MONOCYTES ABSOLUTE (CALC) 0.17 10/3/uL (0.21-1.20); PLATELET ESTIMATE ADQ (ADEQUATE); POLYCHROMASIA 1+ (2-5/OIF) (0-1/OIF); SEGMENTED NEUTROPHIL (0) 80 %; TOTAL NUCLEATED CELLS 100; TOXIC GRANULATION 1+
[2016-07-17 13:34] LABS: A/G RATIO 0.8 (0.7-1.9); ALKALINE PHOSPHATASE 80 U/L (45-117); CALCIUM, SERUM 10.3 MG/DL (8.5-10.4); CHLORIDE, SERUM 102 MMOL/L (96-112); CO2 (CARBON DIOXIDE) 29 MMOL/L (24-34); CPK 55 U/L (0-200); CREATININE 1.61 MG/DL (0.70-1.30); GFR AFRICAN AMERICAN 49 ML/MIN (>=60); GFR NON AFRICAN AMERICAN 42 ML/MIN (>=60); GLOBULIN 3.8 G/DL (2.5-4.1); SGOT(AST) 479 U/L (5-40); SGPT(ALT) 421 U/L (5-65); SODIUM, SERUM 141 MMOL/L (135-148); TOTAL PROTEIN 6.8 G/DL (6.0-8.5)
[2016-07-17 13:37] LABS: BUN (BLOOD UREA NITROGEN) 48 MG/DL (6-23); CK-MB 2.2 NG/ML; GLUCOSE, SERUM 144 MG/DL (60-99); TROPONIN I 0.11 NG/ML (<0.05)
[2016-07-17 13:46] LABS: PHOSPHORUS, SERUM 3.5 MG/DL (2.5-4.5)
[2016-07-18 05:25] LABS: INTERNATIONAL NORMAL RATI 1.6 UNITS (-); PROTIME (NOT ORD) 18.8 SEC (12.0-14.5)
[2016-07-18 05:40] LABS: ALBUMIN 3.3 G/DL (3.5-5.0); ALKALINE PHOSPHATASE 80 U/L (45-117); CHLORIDE, SERUM 100 MMOL/L (96-112); CO2 (CARBON DIOXIDE) 29 MMOL/L (24-34); CREATININE 1.92 MG/DL (0.70-1.30); GFR AFRICAN AMERICAN 39 ML/MIN (>=60); GFR NON AFRICAN AMERICAN 34 ML/MIN (>=60); INDIRECT BILIRUBIN(NOT ORDER) 1.2 MG/DL (0.1-0.9); POTASSIUM, SERUM 4.2 MMOL/L (3.5-5.3); SGOT(AST) 1666 U/L (5-40); SGPT(ALT) 1590 U/L (5-65); SODIUM, SERUM 142 MMOL/L (135-148); TOTAL BILIRUBIN 1.6 MG/DL (0-1.2); TOTAL PROTEIN 6.8 G/DL (6.0-8.5)
[2016-07-18 05:45] LABS: BASOPHILS 0.1 %; BASOPHILS ABSOLUTE 0.02 10/3/uL (0.0-0.16); EOSINOPHILS 0.4 %; EOSINOPHILS ABSOLUTE 0.05 10/3/uL (0.0-0.53); HEMATOCRIT 30.2 % (40.0-51.0); HEMOGLOBIN 8.8 g/dL (13.6-17.8); IMMATURE GRANULOCYTES 0.3 %; IMMATURE GRANULOCYTES ABSOLUTE 0.04 10/3/uL (0.0-0.11); LYMPHOCYTES 8.6 %; LYMPHOCYTES ABSOLUTE 1.18 10/3/uL (0.67-4.30); MEAN CORPUS HGB CONC 29.1 g/dL (32.0-36.0); MEAN CORPUSCULAR HEMOGLOB 24.2 pg (26.0-34.0); MEAN PLATELET VOLUME 10.5 fL (9.2-13.0); MONOCYTES 10.1 %; MONOCYTES ABSOLUTE 1.39 10/3/uL (0.21-1.20); NEUTROPHILS 80.5 %; NEUTROPHILS ABSOLUTE 11.05 10/3/uL (2.02-8.40); PLATELET COUNT 138 10/3/uL (150-400); RBC DISTRIBUTION WIDTH 18.1 % (12.0-16.0); RED CELL COUNT 3.64 10/6/uL (4.7-6.1); WHITE BLOOD CELLS 13.7 10/3/uL (4.5-10.5)
[2016-07-18 05:49] LABS: MANUAL DIFF NO %
[2016-07-18 05:55] LABS: BUN (BLOOD UREA NITROGEN) 60 MG/DL (6-23); CALCIUM, SERUM 9.3 MG/DL (8.5-10.4); DIRECT BILIRUBIN 0.4 MG/DL (0.0-0.4); GLUCOSE, SERUM 88 MG/DL (60-99)
[2016-07-18 11:46] LABS: ASCORBIC ACID (UR NOT ORDER) NEG (NEG); BILIRUBIN, URINE NEGATIVE (NEG); KETONE, URINE NEGATIVE (NEG); LEUKOCYTE ESTERASE(NOT OR NEG (NEG); WBC (NOT ORDERED) (RFLEX) 1 (0-5)
[2016-07-18 14:49] LABS: ALBUMIN 3.1 G/DL (3.5-5.0); BUN (BLOOD UREA NITROGEN) 61 MG/DL (6-23); CALCIUM, SERUM 9.2 MG/DL (8.5-10.4); CHLORIDE, SERUM 99 MMOL/L (96-112); CO2 (CARBON DIOXIDE) 33 MMOL/L (24-34); CREATININE 1.84 MG/DL (0.70-1.30); GFR AFRICAN AMERICAN 42 ML/MIN (>=60); GFR NON AFRICAN AMERICAN 36 ML/MIN (>=60); GLUCOSE, SERUM 100 MG/DL (60-99); PHOSPHORUS, SERUM 3.5 MG/DL (2.5-4.5); POTASSIUM, SERUM 4.6 MMOL/L (3.5-5.3); SODIUM, SERUM 138 MMOL/L (135-148)
[2016-07-19 06:13] LABS: BASOPHILS 0.1 %; BASOPHILS ABSOLUTE 0.01 10/3/uL (0.0-0.16); EOSINOPHILS 2.9 %; EOSINOPHILS ABSOLUTE 0.33 10/3/uL (0.0-0.53); HEMOGLOBIN 7.7 g/dL (13.6-17.8); IMMATURE GRANULOCYTES 0.5 %; IMMATURE GRANULOCYTES ABSOLUTE 0.06 10/3/uL (0.0-0.11); LYMPHOCYTES 12.6 %; LYMPHOCYTES ABSOLUTE 1.42 10/3/uL (0.67-4.30); MEAN CORPUS HGB CONC 29.5 g/dL (32.0-36.0); MEAN CORPUSCULAR HEMOGLOB 24.1 pg (26.0-34.0); MEAN CORPUSCULAR VOLUME 81.8 fL (80-100); MEAN PLATELET VOLUME 10.1 fL (9.2-13.0); MONOCYTES 13.7 %; MONOCYTES ABSOLUTE 1.54 10/3/uL (0.21-1.20); NEUTROPHILS 70.2 %; NEUTROPHILS ABSOLUTE 7.92 10/3/uL (2.02-8.40); PLATELET COUNT 130 10/3/uL (150-400); RBC DISTRIBUTION WIDTH 18.4 % (12.0-16.0); RED CELL COUNT 3.19 10/6/uL (4.7-6.1); WHITE BLOOD CELLS 11.3 10/3/uL (4.5-10.5)
[2016-07-19 06:15] LABS: HEMATOCRIT 26.1 % (40.0-51.0); MANUAL DIFF NO %
[2016-07-19 06:21] LABS: BUN (BLOOD UREA NITROGEN) 60 MG/DL (6-23); CALCIUM, SERUM 8.8 MG/DL (8.5-10.4); CHLORIDE, SERUM 98 MMOL/L (96-112); CO2 (CARBON DIOXIDE) 33 MMOL/L (24-34); CREATININE 1.56 MG/DL (0.70-1.30); GFR AFRICAN AMERICAN 51 ML/MIN (>=60); GFR NON AFRICAN AMERICAN 44 ML/MIN (>=60); GLUCOSE, SERUM 113 MG/DL (60-99); PHOSPHORUS, SERUM 2.7 MG/DL (2.5-4.5); POTASSIUM, SERUM 3.8 MMOL/L (3.5-5.3); SODIUM, SERUM 136 MMOL/L (135-148)
[2016-07-20 06:23] LABS: HEMATOCRIT 28.5 % (40.0-51.0); HEMOGLOBIN 8.3 g/dL (13.6-17.8); MEAN CORPUS HGB CONC 29.1 g/dL (32.0-36.0); MEAN CORPUSCULAR HEMOGLOB 24.1 pg (26.0-34.0); MEAN CORPUSCULAR VOLUME 82.6 fL (80-100); MEAN PLATELET VOLUME 11.2 fL (9.2-13.0); PLATELET COUNT 132 10/3/uL (150-400); RBC DISTRIBUTION WIDTH 18.5 % (12.0-16.0); RED CELL COUNT 3.45 10/6/uL (4.7-6.1); WHITE BLOOD CELLS 10.6 10/3/uL (4.5-10.5)
[2016-07-20 06:25] LABS: MANUAL DIFF YES %
[2016-07-20 06:33] LABS: ALBUMIN 3.1 G/DL (3.5-5.0); BUN (BLOOD UREA NITROGEN) 52 MG/DL (6-23); CHLORIDE, SERUM 97 MMOL/L (96-112); CO2 (CARBON DIOXIDE) 33 MMOL/L (24-34); CREATININE 1.44 MG/DL (0.70-1.30); GFR AFRICAN AMERICAN 56 ML/MIN (>=60); GFR NON AFRICAN AMERICAN 48 ML/MIN (>=60); GLUCOSE, SERUM 98 MG/DL (60-99); PHOSPHORUS, SERUM 2.9 MG/DL (2.5-4.5); POTASSIUM, SERUM 4.3 MMOL/L (3.5-5.3); SODIUM, SERUM 136 MMOL/L (135-148)
[2016-07-20 06:55] LABS: EOSINOPHILS 4 %; EOSINOPHILS ABSOLUTE (CALC) 0.42 10/3/uL (0.0-0.53); IMMATURE GRANS ABSOLUTE (CALC) 0.11 10/3/uL (0.0-0.11); LYMPHOCYTES 11 %; LYMPHOCYTES ABSOLUTE (CALC) 1.17 10/3/uL (0.67-4.30); METAMYELOCYTES 1 %; MONOCYTES 21 %; MONOCYTES ABSOLUTE (CALC) 2.23 10/3/uL (0.21-1.20); NEUTROPHILS ABSOLUTE (CALC) 6.68 10/3/uL (2.02-8.40); PLATELET ESTIMATE SLT DEC (ADEQUATE); SEGMENTED NEUTROPHIL (0) 63 %; TOTAL NUCLEATED CELLS 100
[2016-07-20 06:56] LABS: ANISOCYTOSIS 1+ (5-10/OIF) (0-5/OIF)
[2016-07-20 06:58] LABS: HYPOCHROMIA 1+ (3-10/OIF) (0-2/OIF)
[2016-07-21 06:10] LABS: BASOPHILS 0 %; EOSINOPHILS 0.2 %; EOSINOPHILS ABSOLUTE 0.01 10/3/uL (0.0-0.53); HEMOGLOBIN 8.4 g/dL (13.6-17.8); IMMATURE GRANULOCYTES 0.6 %; IMMATURE GRANULOCYTES ABSOLUTE 0.04 10/3/uL (0.0-0.11); LYMPHOCYTES 8.7 %; LYMPHOCYTES ABSOLUTE 0.56 10/3/uL (0.67-4.30); MEAN CORPUSCULAR VOLUME 82.9 fL (80-100); MEAN PLATELET VOLUME 10.8 fL (9.2-13.0); MONOCYTES 6.2 %; NEUTROPHILS 84.3 %; NEUTROPHILS ABSOLUTE 5.43 10/3/uL (2.02-8.40); PLATELET COUNT 111 10/3/uL (150-400); RBC DISTRIBUTION WIDTH 18.5 % (12.0-16.0); WHITE BLOOD CELLS 6.4 10/3/uL (4.5-10.5)
[2016-07-21 06:12] LABS: MANUAL DIFF NO %
[2016-07-21 06:23] LABS: ALBUMIN 3.2 G/DL (3.5-5.0); BUN (BLOOD UREA NITROGEN) 52 MG/DL (6-23); CALCIUM, SERUM 9.5 MG/DL (8.5-10.4); CHLORIDE, SERUM 98 MMOL/L (96-112); CO2 (CARBON DIOXIDE) 32 MMOL/L (24-34); CREATININE 1.34 MG/DL (0.70-1.30); GFR AFRICAN AMERICAN 61 ML/MIN (>=60); GFR NON AFRICAN AMERICAN 53 ML/MIN (>=60); PHOSPHORUS, SERUM 3.2 MG/DL (2.5-4.5); POTASSIUM, SERUM 4.1 MMOL/L (3.5-5.3); SODIUM, SERUM 136 MMOL/L (135-148)
[2016-07-21 06:24] LABS: GLUCOSE, SERUM 125 MG/DL (60-99)
[2016-07-21] MEDS ORDERED: COREG3 PO (10:10)
[2016-07-21] MEDS ORDERED: DEMA20 PO (10:11)
[2016-07-21] MEDS ORDERED: KLOR-CON M2020 MEQ PO (10:20)
[2016-07-21] MEDS ORDERED: GGDM5ML PO (10:21)
[2016-07-21] MEDS ORDERED: Z-PAK PO (10:22)
[2016-07-21] MEDS ORDERED: MEDROL DOSE PACK (10:22)
== END 2016-07-21 15:36 | disposition home or self-care (01) | DRG 291 ==
LOC: ER 07:04 → 6NO 08:00 → SDC/OF 07-17 12:26 → IMCU 07-17 15:08 → 7NO 07-18 13:30
PROVIDERS: Internal Medicine; Internal Medicine Cardiovascular Disease; Internal Medicine Clinical Cardiac Electrophysiology; Internal Medicine Nephrology; Registered Nurse; Specialist
PROC: 02HV33Z Insertion of Infusion Device into Superior Vena Cava, Percutaneous Approach (ICD-10-PCS; principal; 2016-07-17)
PROC: 5A1D00Z (ICD-10-PCS; 2016-07-17)
DX: I13.0 Hypertensive heart and chronic kidney disease with heart failure and stage 1 through stage 4 chronic kidney disease, or unspecified chronic kidney disease (principal); I50.23 Acute on chronic systolic (congestive) heart failure; J96.21 Acute and chronic respiratory failure with hypoxia; Z99.81 Dependence on supplemental oxygen; J44.1 Chronic obstructive pulmonary disease with (acute) exacerbation; E87.5 Hyperkalemia; E78.5 Hyperlipidemia, unspecified; Z95.810 Presence of automatic (implantable) cardiac defibrillator; I25.5 Ischemic cardiomyopathy; I25.10 Atherosclerotic heart disease of native coronary artery without angina pectoris; Z95.1 Presence of aortocoronary bypass graft; Z87.891 Personal history of nicotine dependence; N18.3 Chronic kidney disease, stage 3 (moderate); F41.9 Anxiety disorder, unspecified
CPT/HCPCS: 36600; 71010; 71020; 71250; 76775; 80048; 80053; 80069; 80076; 81001; 82140; 82330; 82550; 82553; 82728; 82803; 82805; 82947; 82962; 83735; 83880; 84100; 84132; 84145; 84295; 84443; 84484; 85014; 85025; 85610; 85730; 86140; 92950; 93005; 94640; 96374; 96375; 99285; A9270-GY; C1752; C8929; G0257; J0610; J2405; J2920; P9047; Q9957

== ENCOUNTER 2016-07-30 21:20 | Inpatient (IN) | payer BC ==
--- NOTE | ~2016-07-30 | DS ---
Discharge Summary [facility] [address] [place]. [address] NAME: EL CONNOR : 43 STATUS : DIS IN PAT#: [id number] AGE: 71 ADM/REG DATE : 07/30/16 MR#: [id number] REPORT SERV DATE: 08/02/16 DICTATED BY: NICOLE ADAIR DATE: 08/01/16 REPORT STATUS : Draft TRANSCRIBED BY: MODL DATE: 08/01/16 ADMISSION DATE: 07/30/2016 DISCHARGE DATE: 08/01/2016 DISCHARGE DIAGNOSES: 1. Chronic congestive heart failure, with severe systolic dysfunction, ejection fraction 20%, with the recent hospitalization. 2. Chronic kidney disease, stable. 3. Chronic obstructive pulmonary disease. 4. Deconditioning. 5. Chronic hypoxia with respiratory failure. 6. Chronic anemia. HISTORY OF PRESENT ILLNESS: This is a 71-year-old male patient, who was discharged 07/22/2016, came to the hospital on 07/30/2016, with the same symptoms of presentation. Please see dictated H and P. HOSPITAL COURSE: He was admitted to hospital with heart failure and was put on IV diuretics. According to the patient, he was taking all his medication he is supposed to, however, he has a broken nebulizers at home, and he literally was not able to take care of himself at home anymore with his medical conditions. Therefore, he had a conversation with the rn field case manager. The patient wanted to have hospice care referral through the hospital at this time. [facility] was called and the patient's family is having meeting with the patient to [facility], they decided to go to hospice care to the house of the granddaughter. Initially, the discharge was made to go to her house with [facility] care, however, during this hospital discharge process, the granddaughter changed the mind, so therefore, the patient was discharged to go to [facility]. Overall, the patient has been stable. His oxygen has been 99% to 100% with 2 L of oxygen and he diuresed a little bit. He does have some residual edema, but his breathing is stable, remained in stable condition. He also has had some issue with anxiety, Xanax was helping him tremendously. Overall, the case was discussed with the [facility] and they are taking over this patient back here at [facility] to continue to manage end of life care. I spent more than 30 minutes in discharge coordination. Indication thank you. BETTY/VAISHNAVI Nicole Adair M.D. / [id number] Discharge Summary [address] [address] NAME: EL CONNOR : 43 STATUS : DIS IN PAT#: [id number] AGE: 71 ADM/REG DATE : 07/30/16 MR#: [id number] REPORT SERV DATE: 08/02/16 DICTATED BY: NICOLE ADAIR DATE: 08/01/16 REPORT STATUS : Draft TRANSCRIBED BY: VAISHNAVI DATE: 08/01/16 CC: Brenda Rizo M.D.
--- NOTE | ~2016-07-30 | HP ---
History And Physical [address] [place]. [address] NAME: EL CONNOR : [birth year] STATUS : ADM IN [facility]#: [id number] AGE: 71 ADM/REG DATE : 07/30/16 MR#: [id number] REPORT SERV DATE: 07/31/16 DICTATED BY: ISAAC ABARCA DATE: 07/31/16 REPORT STATUS : Draft TRANSCRIBED BY: MODL DATE: 07/31/16 DATE OF ADMISSION: 07/30/2016 CHIEF COMPLAINT: A 71-year-old male presenting with increasing shortness of breath. HISTORY OF PRESENTING ILLNESS: The patient's history was obtained through careful interview with the patient, coupled with review of [facility] and [facility] medical records. The patient states that for "a couple of days" he has been having increasing shortness of breath characterized by dyspnea on exertion and progressive orthopnea. He has been having to sleep in a chair each night. He describes increasing lower extremity edema, increasing abdominal distention, and he states "I have no strength" and he states he could not even walk today. No chest pain. No abdominal pain. His legs have a constant aching discomfort, 8/10 severity. REVIEW OF SYSTEMS: Otherwise, a 14-point review of systems was obtained was negative. PAST MEDICAL HISTORY: 1. COPD, oxygen dependent. 2. Coronary artery disease, status post CABG. 3. AICD for ventricular tachycardia. 4. Esophageal stricture. 5. Colon polyps. 6. Hypertension. 7. Systolic congestive heart failure, ejection fraction 25%. 8. Hypotension, previously on midodrine. 9. Hyperkalemia, 06/2016, requiring emergent dialysis temporarily. 10.Right pleural effusion with pleural plaques and lung mass found to be negative on PET scan and probably more consistent with chronic fluid retention and rounded atelectasis. 11.Dyslipidemia. 12.Right adrenal nodule. 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 14.Chronically elevated troponin 0.07 to 0.13 over the last two years. PAST SURGICAL HISTORY: 1. CABG in 1993. 2. AICD placement. 3. Left knee surgery. 4. Infected AICD, 2005. ALLERGIES: LIBRAX, PENICILLIN, VALIUM, AND PHENERGAN. History And Physical [address] [address] NAME: EL CONNOR : [birth year] STATUS : ADM IN PAT#: [id number] AGE: 71 ADM/REG DATE : 07/30/16 MR#: [id number] REPORT SERV DATE: 07/31/16 DICTATED BY: ISAAC ABARCA DATE: 07/31/16 REPORT STATUS : Draft TRANSCRIBED BY: VAISHNAVI DATE: 07/31/16 SOCIAL HISTORY: Quit smoking in 2007. Used to drink about a six-pack of beer a day, but has quit now. He lives alone. He has been , has no children. Retired from the [employer], but also served for the [employer] for 25 years. FAMILY HISTORY: Mother with stroke, father and brother with heart disease. CURRENT MEDICATIONS: Include albuterol, amiodarone 100 mg p.o. q.h.s., aspirin 325 mg p.o. daily, Lipitor 20 mg p.o. daily, Z-Yogi, baclofen 10 mg p.o. daily, Coreg 3.25 mg p.o. b.i.d., Neurontin 200 mg p.o. t.i.d., hydrocodone, Zaroxolyn 2.5 mg p.o. daily as needed, Dulera four puffs inhaled twice a day, nitroglycerin, Prilosec 20 mg p.o. daily, potassium 20 mEq p.o. daily, Demadex 20 mg p.o. b.i.d. PHYSICAL EXAMINATION: VITAL SIGNS: Temperature 98.1, pulse 87, blood pressure 95/53, respiratory rate 20, O2 saturation 100% on room air. GENERAL: A chronically ill-appearing male. No evidence of acute distress. HEENT: Pupils equal, round, and reactive to light. No conjunctival pallor. No scleral icterus. Nares are patent. Oropharynx is clear of obstruction. Moist mucous membranes. NECK: Trachea midline. No thyromegaly. LYMPH: No cervical lymphadenopathy. No supraclavicular lymphadenopathy. RESPIRATORY: The patient has prominent wet rales throughout entire lung exam really up to the apex of each lung. No wheezes though. No rhonchi. He has a quite labored respiratory effort even at rest. CARDIOVASCULAR: Regular rate and rhythm, paced on the monitor though. A 3/6 harsh murmur is auscultated. It is a systolic murmur. No rubs, or gallops are appreciated though. The patient does have quite deeply pitting lower extremity edema extending to the knees symmetrically. ABDOMEN: Distended by exam. No tympanic resonance on percussion though. No tenderness throughout. No hepatosplenomegaly. DERMATOLOGICAL: Warm and dry extremities. No pallor, no cyanosis. PSYCHIATRIC: Normal affect. Good mood. Alert and oriented x3. LABORATORY DATA: White blood cell count 15.3, hemoglobin 8, hematocrit 28, platelets 95. Sodium 140, potassium 4.2, chloride 101, bicarb 37, BUN 32, creatinine 1.16, glucose 105. Brain natriuretic peptide 1861. Troponin 0.18. INR 1.2. ABG demonstrates pH 7.50, PaCO2 of 38, a PaO2 of 136, and a bicarb of 29. STUDIES: 1. Chest x-ray by my own evaluation shows massive cardiomegaly, bilateral pulmonary edema, left effusion. All this seems increased compared to 06/2016. 2. EKG by my own evaluation shows atrial ventricular pacing. ASSESSMENT AND PLAN: 1. Systolic congestive heart failure exacerbate with a harsh 3/6 murmur. History of ejection fraction 22% to 25%. Recheck an echocardiogram. Place on IV diuretic. Coreg as tolerated. Hold JANES inhibitor and ARB secondary to hypotension. 2. Chronically elevated troponin. We will follow. History And Physical [address] [address] NAME: EL CONNOR : 43 STATUS : ADM IN [facility]#: [id number] AGE: 71 ADM/REG DATE : 07/30/16 MR#: [id number] REPORT SERV DATE: 07/31/16 DICTATED BY: ISAAC ABARCA DATE: 07/31/16 REPORT STATUS : Draft TRANSCRIBED BY: VAISHNAVI DATE: 07/31/16 3. Chronic obstructive pulmonary disease. Place on duo nebulizers. 4. Leukocytosis. Monitor for overt fevers. Check procalcitonin. Check ESR and CRP. KPL/MODL Isaac Abarca M.D. / [id number] CC: Brenda Rizo M.D. Gregg Shander, M.D. Hisham F. Qutob, MD
[2016-07-30 20:39] LABS: BASOPHILS 0.1 %; BASOPHILS ABSOLUTE 0.01 10/3/uL (0.0-0.16); EOSINOPHILS 0.7 %; EOSINOPHILS ABSOLUTE 0.11 10/3/uL (0.0-0.53); ER CBC TAT 0 Hrs 08 Mins; HEMATOCRIT 28.6 % (40.0-51.0); HEMOGLOBIN 8.3 g/dL (13.6-17.8); IMMATURE GRANULOCYTES 0.3 %; IMMATURE GRANULOCYTES ABSOLUTE 0.04 10/3/uL (0.0-0.11); LYMPHOCYTES 5.7 %; LYMPHOCYTES ABSOLUTE 0.87 10/3/uL (0.67-4.30); MANUAL DIFF NO %; MEAN CORPUSCULAR HEMOGLOB 23.4 pg (26.0-34.0); MEAN CORPUSCULAR VOLUME 80.8 fL (80-100); MONOCYTES 15.3 %; MONOCYTES ABSOLUTE 2.34 10/3/uL (0.21-1.20); NEUTROPHILS 77.9 %; NEUTROPHILS ABSOLUTE 11.91 10/3/uL (2.02-8.40); NUCLEATED RED BLOOD CELLS 0.2 /100WBC (0-0); PLATELET COUNT 95 10/3/uL (150-400); RBC DISTRIBUTION WIDTH 18.6 % (12.0-16.0); RED CELL COUNT 3.54 10/6/uL (4.7-6.1); WHITE BLOOD CELLS 15.3 10/3/uL (4.5-10.5)
[2016-07-30 20:43] LABS: INTERNATIONAL NORMAL RATI 1.2 UNITS (-); PARTIAL THROMBO TIME 27.6 SEC (22.5-37.2)
[2016-07-30 20:44] LABS: PROTIME (NOT ORD) 14.8 SEC (12.0-14.5)
[2016-07-30 20:55] LABS: ANISOCYTOSIS 1+ (5-10/OIF) (0-5/OIF); MACROCYTES 1+ (5-10/OIF) (0-5/OIF); MICROCYTES 1+ (5-10/OIF) (0-5/OIF); PLATELET ESTIMATE DEC (ADEQUATE)
[2016-07-30 20:56] LABS: CALCIUM, SERUM 8.2 MG/DL (8.5-10.4); CHLORIDE, SERUM 101 MMOL/L (96-112); GLUCOSE, SERUM 105 MG/DL (60-99); POTASSIUM, SERUM 4.2 MMOL/L (3.5-5.3); SODIUM, SERUM 140 MMOL/L (135-148); TEARDROP SHAPED RBCS OCC (0-2/OIF)
[2016-07-30 20:58] LABS: BUN (BLOOD UREA NITROGEN) 37 MG/DL (6-23); CO2 (CARBON DIOXIDE) 37 MMOL/L (24-34); CREATININE 1.16 MG/DL (0.70-1.30); GFR AFRICAN AMERICAN 73 ML/MIN (>=60); GFR NON AFRICAN AMERICAN 63 ML/MIN (>=60)
[2016-07-30 21:00] LABS: CHEST PAIN PROFILE TAT 0 Hrs 29 Mins; TROPONIN I 0.18 NG/ML (<0.05)
[~2016-07-30 21:20] MED LIST changes: +ASA5GR PO; +BUM1 PO; +COREG3 PO; +DEMA20 PO; +DULERA 200 MCG/13 GM INH; +GGDM5ML PO; +MEDROL DOSE PACK; +PROAM25 PO; +VICKS NYQUIL PO; +Z-PAK PO; +ZAROX2.5B PO
[2016-07-30] MEDS ORDERED: DULERA 200 MCG/13 GM INH (21:42)
[2016-07-30] MEDS ORDERED: PRILO PO (21:42)
[2016-07-30] MEDS ORDERED: COREG3 PO (21:43)
[2016-07-30] MEDS ORDERED: KLOR-CON M2020 MEQ PO (21:43)
[2016-07-30] MEDS ORDERED: Z-PAK PO (21:43)
[2016-07-30] MEDS ORDERED: MEDROLPAK4 (21:43)
[2016-07-30] MEDS ORDERED: LIPITOR20 PO (21:44)
[2016-07-30] MEDS ORDERED: DEMA20 PO (21:44)
[2016-07-30] MEDS ORDERED: LIOR10 PO (21:44)
[2016-07-30] MEDS ORDERED: ALBUTEROL0.083 % INH (21:45)
[2016-07-30] MEDS ORDERED: PACERONE100 MG PO (21:45)
[2016-07-30] MEDS ORDERED: NEUR100 PO (21:45)
[2016-07-30] MEDS ORDERED: ZAROX2.5B PO (21:46)
[2016-07-30] MEDS ORDERED: NITROSTAT0.4 MG SL (21:46)
[2016-07-30] MEDS ORDERED: ASABAYER PO (21:47)
[2016-07-30] MEDS ORDERED: NORCO1 TAB PO (21:47)
[2016-07-31 04:13] LABS: HEMATOCRIT 28.3 % (40.0-51.0); HEMOGLOBIN 8.2 g/dL (13.6-17.8); MANUAL DIFF YES %; MEAN CORPUSCULAR HEMOGLOB 23.7 pg (26.0-34.0); MEAN CORPUSCULAR VOLUME 81.8 fL (80-100); MEAN PLATELET VOLUME 10.9 fL (9.2-13.0); PLATELET COUNT 104 10/3/uL (150-400); RBC DISTRIBUTION WIDTH 19.1 % (12.0-16.0); RED CELL COUNT 3.46 10/6/uL (4.7-6.1); WHITE BLOOD CELLS 15.6 10/3/uL (4.5-10.5)
[2016-07-31 04:47] LABS: A/G RATIO 0.9 (0.7-1.9); ALKALINE PHOSPHATASE 71 U/L (45-117); BUN (BLOOD UREA NITROGEN) 38 MG/DL (6-23); CALCIUM, SERUM 8.5 MG/DL (8.5-10.4); CHLORIDE, SERUM 101 MMOL/L (96-112); CREATININE 1.22 MG/DL (0.70-1.30); GFR AFRICAN AMERICAN 68 ML/MIN (>=60); GFR NON AFRICAN AMERICAN 59 ML/MIN (>=60); GLOBULIN 3.2 G/DL (2.5-4.1); POTASSIUM, SERUM 4.1 MMOL/L (3.5-5.3); SGOT(AST) 25 U/L (5-40); SGPT(ALT) 106 U/L (5-65); SODIUM, SERUM 140 MMOL/L (135-148); TOTAL PROTEIN 6.2 G/DL (6.0-8.5)
[2016-07-31 04:48] LABS: CO2 (CARBON DIOXIDE) 30 MMOL/L (24-34); GLUCOSE, SERUM 136 MG/DL (60-99); TOTAL BILIRUBIN 1.1 MG/DL (0-1.2); TROPONIN I 0.16 NG/ML (<0.05)
[2016-07-31 05:13] LABS: INTERNATIONAL NORMAL RATI 1.2 UNITS (-); PARTIAL THROMBO TIME 28.4 SEC (22.5-37.2); PROTIME (NOT ORD) 14.8 SEC (12.0-14.5)
[2016-07-31 05:28] LABS: C-REACTIVE PROTEIN 16.4 MG/L (<8.0); CPK 40 U/L (0-200)
[2016-07-31 05:37] LABS: ANISOCYTOSIS 1+ (5-10/OIF) (0-5/OIF); LYMPHOCYTES 7 %; LYMPHOCYTES ABSOLUTE (CALC) 1.09 10/3/uL (0.67-4.30); MONOCYTES 7 %; MONOCYTES ABSOLUTE (CALC) 1.09 10/3/uL (0.21-1.20); NEUTROPHILS ABSOLUTE (CALC) 13.42 10/3/uL (2.02-8.40); PLATELET ESTIMATE DEC (ADEQUATE); RBC MORPHOLOGY ABN (NORMAL); SEGMENTED NEUTROPHIL (0) 86 %; TOTAL NUCLEATED CELLS 100
[2016-07-31 06:27] LABS: BE (BASE EXCESS) 5.5 MEQ/L (0 +/- 2.5); CARBOXYHEMOGLOBIN 2.4 % (0-3); DEVICE NC; HEMOBLOGIN CONTENT 8.6 G/DL (14-18); INSTRUMENT SERIAL # 8087; METHEMOGLOBIN 0.2 % (0-3); O2 CONTENT 11.9 VOL% (18-24); PCO2 (CO2 TENSION) 38 MMHG (35-45); PO2 (O2 TENSION) 136 MMHG (79-93); SAMPLE Arterial
[2016-07-31 06:28] LABS: BE (BASE EXCESS) 5.5 MEQ/L (0 +/- 2.5); CARBOXYHEMOGLOBIN 2.4 % (0-3); DEVICE NC; HEMOBLOGIN CONTENT 8.6 G/DL (14-18); INSTRUMENT SERIAL # 8087; METHEMOGLOBIN 0.2 % (0-3); O2 CONTENT 11.9 VOL% (18-24); PCO2 (CO2 TENSION) 38 MMHG (35-45); PO2 (O2 TENSION) 136 MMHG (79-93); SAMPLE Arterial
[2016-07-31 06:51] LABS: PROCALCITONIN <0.05 ng/mL (<0.5)
[2016-08-01 04:34] LABS: CALCIUM, SERUM 8.4 MG/DL (8.5-10.4); CHLORIDE, SERUM 102 MMOL/L (96-112); CO2 (CARBON DIOXIDE) 30 MMOL/L (24-34); CREATININE 1.28 MG/DL (0.70-1.30); GFR AFRICAN AMERICAN 64 ML/MIN (>=60); GFR NON AFRICAN AMERICAN 56 ML/MIN (>=60); GLUCOSE, SERUM 123 MG/DL (60-99); POTASSIUM, SERUM 4.2 MMOL/L (3.5-5.3); SODIUM, SERUM 140 MMOL/L (135-148)
[2016-08-01 04:35] LABS: BUN (BLOOD UREA NITROGEN) 43 MG/DL (6-23)
== END 2016-08-01 16:33 | disposition hospice, home (50) | DRG 291 ==
LOC: ER 21:20 → 5NO 22:03
PROVIDERS: Hospitalist; Internal Medicine; Nurse Practitioner Acute Care
DX: I13.0 Hypertensive heart and chronic kidney disease with heart failure and stage 1 through stage 4 chronic kidney disease, or unspecified chronic kidney disease (principal); I50.23 Acute on chronic systolic (congestive) heart failure; J96.11 Chronic respiratory failure with hypoxia; Z99.81 Dependence on supplemental oxygen; J44.9 Chronic obstructive pulmonary disease, unspecified; N18.9 Chronic kidney disease, unspecified; I25.10 Atherosclerotic heart disease of native coronary artery without angina pectoris; E78.5 Hyperlipidemia, unspecified; Z95.1 Presence of aortocoronary bypass graft; Z95.810 Presence of automatic (implantable) cardiac defibrillator; Z88.0 Allergy status to penicillin; Z88.8 Allergy status to other drugs, medicaments and biological substances; Z87.891 Personal history of nicotine dependence; Z79.82 Long term (current) use of aspirin
CPT/HCPCS: 36600; 71010; 80048; 80053; 82550; 82553; 82805; 83735; 83880; 84145; 84443; 84484; 85025; 85610; 85652; 85730; 86140; 93005; 93971; 94640; 99285; A9270-GY